=== PATIENT | male | born 1960 | race Hispanic/Latino ===

== ENCOUNTER 2018-03-21 09:50 | Emergency (ER) | payer BC ==
--- OUTSIDE RECORDS SUMMARY | 2018-03-21 09:52 | XMS REPORT ---
:1960 Author Organization eClinicalWorks Care Team Providers Name Role Phone Michael Jackson Provider Role Unavailable Allergies No Known Allergies Problems Problem Type Condition Code Onset Dates Condition Status Problem Premature ejaculation F52.4 Active Problem Tobacco use disorder F17.200 Active Problem Helicobacter pylori [H. pylori] as B96.81 Active the cause of diseases classified elsewhere Problem Cervical disc herniation M50.20 Active Problem Hyperlipidemia E78.5 Active Problem Erectile dysfunction, unspecified N52.9 Active erectile dysfunction type Problem Alcohol abuse F10.10 Active Problem Paresthesia R20.2 Active Problem Carpal tunnel syndrome G56.00 Active Problem Cervical spondylosis M47.812 Active Assessment Alcohol abuse F10.10 Active Assessment Nicotine use disorder F17.200 Active Assessment Erectile dysfunction, unspecified N52.9 Active erectile dysfunction type Assessment Hyperlipidemia E78.5 Active Assessment Elevated BP without diagnosis of R03.0 Active hypertension Problem Nicotine use disorder F17.200 Active Medications Medication Code System Code Instructions Start End Date Status Dosage Date FORMERLY NAMED [facility] 78347017093 81 MG Orally Once Active 1 tablet a day Lipitor FORMERLY NAMED [facility] 68748687431 80 MG Orally Once Active 1 tablet a day Lipitor FORMERLY NAMED [facility] 82085470642 80 MG Active 1 EACH ONCE A DAY ORALLY Viagra FORMERLY NAMED [facility] 49415082194 100 MG Orally Active 1 tablet Once a day as needed Results No Known Results Summary Purpose eClinicalWorks Submission
--- OUTSIDE RECORDS SUMMARY | 2018-03-21 09:52 | XMS REPORT ---
[...] Instructions Start End Date Status Dosage Date Viagra [facility] 20080573445 100 MG Orally October 04, Active 1 tablet Once a day 2018 as needed Lipitor ND 08928156680 80 MG Orally Once Active 1 tablet a day Aspir-81 [facility] 99387500823 81 MG Orally Once Active 1 tablet a day Results No Known Results Summary Purpose eClinicalWorks Submission
[2018-03-21] MEDS ORDERED: HYDROCODONE/APAP 5/325 MG TAB ONE (10:15)
[2018-03-21] MEDS ORDERED: LIDOCAINE 1% MPF 5 ML VIAL ONE (10:15)
--- NOTE | 2018-03-21 10:47 | ER ---
Nurse's Notes [facility] Name: James Kumar Age: 58 yrs Sex: Male : 1960 Arrival Date: 03/21/2018 Time: 09:52 Bed 14 Private MD: Diagnosis: Cutaneous abscess of neck Presentation: 03/21 09:59 Presenting complaint: Patient states: boil to back of left side of neck, started a iw couple weeks ago, went down then came back up. Transition of care: patient was not received from another setting of care. Onset of symptoms was March 07, 2018. Risk Assessment: Do you want to hurt yourself or someone else? Patient reports no desire to harm self or others. Initial Sepsis Screen: Does the patient meet any 2 criteria? No. Patient's initial sepsis screen is negative. Does the patient have a suspected source of infection? No. Patient's initial sepsis screen is negative. Care prior to arrival: None. 09:59 Method Of Arrival: Ambulatory iw 09:59 Acuity: FORTUNATO 4 iw Historical: - Allergies: 10:01 NKA; iw - Home Meds: 10:01 atorvastatin oral oral [Active]; iw - PMHx: 10:01 Hyperlipidemia; iw - PSHx: 10:01 right hand; iw - Immunization history:: Adult Immunizations not up to date. - Social history:: Smoking status: Patient uses tobacco products, smokes one-half pack cigarettes per day. - Ebola Screening: : Patient negative for fever greater than or equal to 101.5 degrees Fahrenheit, and additional compatible Ebola Virus Disease symptoms Patient denies exposure to infectious person Patient denies travel to an Ebola-affected area in the 21 days before illness onset No symptoms or risks identified at this time. Screenin:00 Abuse screen: Denies threats or abuse. Nutritional screening: No deficits noted. aa5 Tuberculosis screening: No symptoms or risk factors identified. Fall Risk None identified. Assessment: 10:00 General: Appears comfortable, Behavior is calm, cooperative. Pain: Complains of pain in aa5 left side of neck Pain does not radiate. Pain currently is 5 out of 10 on a pain scale. Quality of pain is described as tender, Pain began approximately 2 weeks ago Is continuous. Neuro: Level of Consciousness is awake, alert, obeys commands, Oriented to person, place, time, situation. Cardiovascular: Heart tones S1 S2 present Rhythm is regular. Respiratory: Airway is patent Respiratory effort is even, unlabored, Respiratory pattern is regular, symmetrical. GI: No signs and/or symptoms were reported involving the gastrointestinal system. : No signs and/or symptoms were reported regarding the genitourinary system. EENT: No signs and/or symptoms were reported regarding the EENT system. Derm: Skin is pink, warm \T\ dry. Abscess located on left side of neck is quarter sized, has no drainage, is hot to touch, is red, is raised. Musculoskeletal: Range of motion: intact in all extremities. 11:15 Reassessment: Patient is alert, oriented x 3, equal unlabored respirations, skin aa5 warm/dry/pink. Vital Signs: 10:06 BP 142 / 93; Pulse 87; Resp 16; Temp 98.2; Pulse Ox 99% on R/A; Weight 68.95 kg; Height iw 5 ft. 8 in. (172.72 cm); Pain 5/10; 10:06 Body Mass Index 23.11 (68.95 kg, 172.72 cm) iw ED Course: 09:52 Patient arrived in ED. tw3 09:57 Austin Mancia NP is PHCP. pm1 09:57 Fernandez Mckeon MD is Attending Physician. pm1 10:00 Arm band placed on. aa5 10:00 Patient has correct armband on for positive identification. Bed in low position. Call aa5 light in reach. Side rails up X2. Adult w/ patient. 10:01 Triage completed. iw 10:06 Jenifer Valdivia RN is Primary Nurse. aa5 10:40 Assist provider with I \T\ D: of an abscess on left side of neck Performed by Austin Mancia SOUND CONTROLLER Culture sent to lab. Wound packed. iodoform gauze, Dressing with 4X4s, tape Patient tolerated well. 10:46 Shar Olmos MD is Referral Physician. pm1 11:24 Patient did not have IV access during this emergency room visit. aa5 Administered Medications: 10:10 Drug: [place] 5 mg-325 mg 1 tabs Route: PO; aa5 10:46 Follow up: Response: No adverse reaction aa5 10:34 Drug: Lidocaine (1 %) 5 ml {Note: administered by SOUND CONTROLLER to abscess. .} Volume: 5 ml; aa5 Route: Infiltration; 10:56 Drug: Tetanus-Diphtheria Toxoid Adult 0.5 ml {Floor Surfacer: Bramasol. Exp: aa5 05/21/2020. Lot #: [id number]. } Route: IM; Site: left deltoid; 11:15 Follow up: Response: No adverse reaction aa5 Outcome: 10:46 Discharge ordered by MD. pm1 11:15 Discharged to home ambulatory, with significant other. aa5 11:15 Condition: stable 11:15 Discharge instructions given to patient, Instructed on discharge instructions, follow up and referral plans. medication usage, Demonstrated understanding of instructions, follow-up care, medications, Prescriptions given X 2. 11:25 Patient left the ED. aa5 Signatures: Amanda Aguilar RN LUCAS Jenifer Valdivia RN RN aa5 Austin Mancia NP SOUND CONTROLLER pm1 Edinson, Jessica tw3 Corrections: (The following items were deleted from the chart) 10:33 10:06 Arm band placed on iw aa5 11:28 11:24 Discharged to home ambulatory, with significant other, aa5 aa5 11:28 11:24 Condition: stable aa5 aa5 11:28 11:24 Discharge instructions given to patient, Instructed on discharge instructions, aa5 follow up and referral plans. medication usage, Demonstrated understanding of instructions, follow-up care, medications, Prescriptions given X 2, aa5
--- NOTE | 2018-03-21 10:47 | EDPHYS ---
Physician Documentation [facility] Name: James Kumar Age: 58 yrs Sex: Male : 1960 Arrival Date: 03/21/2018 Time: 09:52 Bed 14 Private MD: ED Physician Fernandez Mckeon HPI: 03/21 10:44 This 58 yrs old Male presents to ER via Ambulatory with complaints of Boil. pm1 10:44 The patient presents with an abscess of the posterior cervical area. Description: The pm1 affected area is approximately 2 cm(s), raised. Onset: The symptoms/episode began/occurred 2 week(s) ago. Possible cause(s): unknown. Associated signs and symptoms: Pertinent negatives: discharge, drainage, erythema, fever, headache, nausea, vomiting. Modifying factors: the symptoms are alleviated by nothing, the symptoms are aggravated by touching. Severity of symptoms: in the emergency department the symptoms are actually worse. The patient has experienced a previous episode, another part of the body. The patient has not recently seen a physician, the patient's primary care provider is Dr. Michael Jackson. Historical: - Allergies: 10:01 NKA; iw - Home Meds: 10:01 atorvastatin oral oral [Active]; iw - PMHx: 10:01 Hyperlipidemia; iw - PSHx: 10:01 right hand; iw - Immunization history:: Adult Immunizations not up to date. - Social history:: Smoking status: Patient uses tobacco products, smokes one-half pack cigarettes per day. - Ebola Screening: : Patient negative for fever greater than or equal to 101.5 degrees Fahrenheit, and additional compatible Ebola Virus Disease symptoms Patient denies exposure to infectious person Patient denies travel to an Ebola-affected area in the 21 days before illness onset No symptoms or risks identified at this time. ROS: 10:44 Constitutional: Negative for fever, chills, and weight loss, Eyes: Negative for injury, pm1 pain, redness, and discharge, ENT: Negative for injury, pain, and discharge, Neck: Negative for injury, pain, and swelling, Cardiovascular: Negative for chest pain, palpitations, and edema, Respiratory: Negative for shortness of breath, cough, wheezing, and pleuritic chest pain, Abdomen/GI: Negative for abdominal pain, nausea, vomiting, diarrhea, and constipation, Back: Negative for injury and pain, MS/Extremity: Negative for injury and deformity. 10:44 Neuro: Negative for headache, weakness, numbness, tingling, and seizure. 10:44 Skin: Positive for abscess, of the posterior cervical area. Exam: 10:44 Constitutional: This is a well developed, well nourished patient who is awake, alert, pm1 and in no acute distress. Head/Face: Normocephalic, atraumatic. Eyes: Pupils equal round and reactive to light, extra-ocular motions intact. Lids and lashes normal. Conjunctiva and sclera are non-icteric and not injected. Cornea within normal limits. Periorbital areas with no swelling, redness, or edema. ENT: Nares patent. No nasal discharge, no septal abnormalities noted. Tympanic membranes are normal and external auditory canals are clear. Oropharynx with no redness, swelling, or masses, exudates, or evidence of obstruction, uvula midline. Mucous membranes moist. Neck: Trachea midline, no thyromegaly or masses palpated, and no cervical lymphadenopathy. Supple, full range of motion without nuchal rigidity, or vertebral point tenderness. No Meningismus. Chest/axilla: Normal chest wall appearance and motion. Nontender with no deformity. No lesions are appreciated. Cardiovascular: Regular rate and rhythm with a normal S1 and S2. No gallops, murmurs, or rubs. Normal PMI, no JVD. No pulse deficits. Respiratory: Lungs have equal breath sounds bilaterally, clear to auscultation and percussion. No rales, rhonchi or wheezes noted. No increased work of breathing, no retractions or nasal flaring. Abdomen/GI: Soft, non-tender, with normal bowel sounds. No distension or tympany. No guarding or rebound. No evidence of tenderness throughout. Back: No spinal tenderness. No costovertebral tenderness. Full range of motion. 10:44 Skin: Appearance: normal except for affected area, abscess, that is small, approximately 2 cm(s), of the left posterior cervical area, with fluctuance, No drainage or surrounding cellulitis. Vital Signs: 10:06 BP 142 / 93; Pulse 87; Resp 16; Temp 98.2; Pulse Ox 99% on R/A; Weight 68.95 kg; Height iw 5 ft. 8 in. (172.72 cm); Pain 5/10; 10:06 Body Mass Index 23.11 (68.95 kg, 172.72 cm) iw Procedures: 10:44 I \T\ D: Incision and drainage was performed for an abscess of the left posterior pm1 cervical area Prepped with Betadine, Anesthetized with 2 ml's 1% Lidocaine. Incised with #11 blade. Drained small amount serosanguinous fluid. Loculations removed. Cultures obtained. Packed with iodoform gauze, Dressing: sterile 4x4 gauze, the patient tolerated the procedure well. MDM: 09:57 Patient medically screened. pm1 10:45 Data reviewed: vital signs. Data interpreted: Pulse oximetry: on room air is 99 %. pm1 Interpretation: normal. Counseling: I had a detailed discussion with the patient and/or guardian regarding: the historical points, exam findings, and any diagnostic results supporting the discharge/admit diagnosis, the need for outpatient follow up, a general surgeon, to return to the emergency department if symptoms worsen or persist or if there are any questions or concerns that arise at home. 03/21 10:45 Order name: Wound Culture pm1 03/21 10:01 Order name: Dressing - Wound; Complete Time: 10:23 pm1 03/21 10:01 Order name: Gloves, Sterile; Complete Time: 10:23 pm1 03/21 10:01 Order name: I\T\D Setup; Complete Time: 10:23 pm1 03/21 10:01 Order name: Scalpel; Complete Time: 10:23 pm1 Administered Medications: 10:10 Drug: [place] 5 mg-325 mg 1 tabs Route: PO; aa5 10:46 Follow up: Response: No adverse reaction aa5 10:34 Drug: Lidocaine (1 %) 5 ml {Note: administered by JIG AND FIXTURE BUILDER to abscess. .} Volume: 5 ml; aa5 Route: Infiltration; 10:56 Drug: Tetanus-Diphtheria Toxoid Adult 0.5 ml {Calculus Tutor: Adeze. Exp: aa5 05/21/2020. Lot #: [id number]. } Route: IM; Site: left deltoid; 11:15 Follow up: Response: No adverse reaction aa5 Disposition: 11:29 Co-signature as Attending Physician, Fernandez Mckeon MD I agree with the assessment and kdr plan of care. Disposition: 03/21/18 10:46 Discharged to Home. Impression: Cutaneous abscess of neck. - Condition is Stable. - Discharge Instructions: Skin Abscess, Incision and Drainage. - Prescriptions for Bactrim DS 800- 160 mg Oral Tablet - take 1 tablet by ORAL route every 12 hours for 10 days; 20 tablet. Tylenol- Codeine #3 300-30 mg Oral Tablet - take 2 tablets by ORAL route every 6 hours As needed; 20 tablet. - Work release form, Medication Reconciliation Form, Thank You Letter, Antibiotic Education, Prescription Opioid Use form. - Follow up: Emergency Department; When: As needed; Reason: Worsening of condition. Follow up: Shar Olmos MD; When: 2 - 3 days; Reason: Recheck today's complaints, Continuance of care, Re-evaluation by your physician. - Problem is new. - Symptoms have improved. Signatures: Dispatcher [employer] EDMS Fernandez Mckeon MD MD kdr Amanda Aguilar RN RN iw Jenifer Valdivia RN RN aa5 Austin Mancia NP JIG AND FIXTURE BUILDER pm1 Corrections: (The following items were deleted from the chart) 11:25 10:46 03/21/2018 10:46 Discharged to Home. Impression: Cutaneous abscess of neck. aa5 Condition is Stable. Forms are Medication Reconciliation Form, Thank You Letter, Antibiotic Education, Prescription Opioid Use. Follow up: Emergency Department; When: As needed; Reason: Worsening of condition. Follow up: Dr. Shar Olmos; When: 2 - 3 days; Reason: Recheck today's complaints, Continuance of care, Re-evaluation by your physician. Problem is new. Symptoms have improved. pm1
[2018-03-21] MEDS ORDERED: TETANUS & DIPHTHERIA TOX,ADULT 0.5 ML VIAL ONE (11:03)
== END 2018-03-21 11:25 | disposition home or self-care (01) ==
LOC: ER 09:50
PROC: 0H94XZZ Drainage of Neck Skin, External Approach (ICD-10-PCS; principal; 2018-03-21)
DX: L02.11 Cutaneous abscess of neck (principal)
CPT/HCPCS: 87070; 87205; 90714; 99284

== ENCOUNTER 2018-04-05 13:34 | Emergency (ER) | payer BC ==
--- OUTSIDE RECORDS SUMMARY | 2018-04-05 13:36 | XMS REPORT ---
[...] Start End Date Status Dosage Date Viagra [facility] 58233439447 100 MG Orally October 04, Active 1 tablet Once a day 2018 as needed Lipitor ND 37653625238 80 MG Orally Once Active 1 tablet a day Aspir-81 [facility] 19713003408 81 MG Orally Once Active 1 tablet a day Results No Known Results Summary Purpose eClinicalWorks Submission
--- OUTSIDE RECORDS SUMMARY | 2018-04-05 13:36 | XMS REPORT ---
[...] Instructions Start End Date Status Dosage Date [facility] 04377662275 81 MG Orally Once Active 1 tablet a day [address]itor [facility] 76280149418 80 MG Orally Once Active 1 tablet a day Lipitor [facility] 03710385383 80 MG Active 1 EACH ONCE A DAY ORALLY Viagra [facility] 06505371945 100 MG Orally Active 1 tablet Once a day as needed Results No Known Results Summary Purpose eClinicalWorks Submission
[2018-04-05] MEDS ORDERED: DIPHENHYDRAMINE 25 MG TAB/CAP ONE (14:25)
[2018-04-05] MEDS ORDERED: predniSONE 20 MG TAB ONE (14:25)
[2018-04-05] MEDS ORDERED: FAMOTIDINE 20 MG TAB ONE (14:25)
--- NOTE | 2018-04-05 16:13 | ER ---
Nurse's Notes [facility] Name: James Kumar Age: 58 yrs Sex: Male : 1960 Arrival Date: 04/05/2018 Time: 13:36 Bed 25 Private MD: Michael Jackson Diagnosis: Rash and other nonspecific skin eruption Presentation: 04/05 13:43 Presenting complaint: states: He was on bactrim for an infection and finished 2 la1 days ago and now he has this itchy rash all over, the rash started on but has been gettingg worse. Transition of care: patient was not received from another setting of care. Onset of symptoms was April 05, 2018. Risk Assessment: Do you want to hurt yourself or someone else? Patient reports no desire to harm self or others. Initial Sepsis Screen: Does the patient meet any 2 criteria? No. Patient's initial sepsis screen is negative. Does the patient have a suspected source of infection? No. Patient's initial sepsis screen is negative. Care prior to arrival: None. 13:43 Method Of Arrival: Ambulatory la1 13:43 Acuity: FORTUNATO 3 la1 Historical: - Allergies: 13:44 NKA; la1 - PMHx: 13:44 Hyperlipidemia; la1 - Immunization history:: Adult Immunizations up to date. - Social history:: Smoking status: Patient/guardian denies using tobacco. - Ebola Screening: : No symptoms or risks identified at this time. Screenin:00 Abuse screen: Denies threats or abuse. Denies injuries from another. Nutritional kr2 screening: No deficits noted. Tuberculosis screening: No symptoms or risk factors identified. Fall Risk None identified. Assessment: 14:00 General: Appears in no apparent distress. uncomfortable, well groomed, well developed, kr2 well nourished, Behavior is calm, cooperative, appropriate for age. Pain: Denies pain. Neuro: Level of Consciousness is awake, alert, obeys commands, Oriented to person, place, time, situation, Appropriate for age. Cardiovascular: Capillary refill < 3 seconds in bilateral fingers Patient's skin is warm and dry. Respiratory: Airway is patent Respiratory effort is even, unlabored, Respiratory pattern is regular, symmetrical. GI: Abdomen is flat, non-distended. EENT: Oral mucosa is moist. Derm: Skin is healthy with good turgor, Rash noted that is itchy, urticaria, on left leg and right leg and left arm and right arm. Musculoskeletal: Circulation, motion, and sensation intact. 15:00 Reassessment: Patient appears in no apparent distress at this time. Patient and/or kr2 family updated on plan of care and expected duration. Pain level reassessed. Patient is alert, oriented x 3, equal unlabored respirations, skin warm/dry/pink. Patient denies pain at this time. Patient states feeling better. 16:00 Reassessment: Patient appears in no apparent distress at this time. Patient is alert, kr2 oriented x 3, equal unlabored respirations, skin warm/dry/pink. Patient denies pain at this time. Patient states feeling better. Patient states symptoms have improved. Vital Signs: 13:44 BP 112 / 80; Pulse 105; Resp 16; Temp 97.7(TE); Pulse Ox 100% on R/A; Weight 68.95 kg; la1 Height 5 ft. 4 in. (162.56 cm); 15:15 BP 136 / 88 RA (auto/reg); Pulse 100; Resp 18; Pulse Ox 100% ; Pain 0/10; jp3 16:21 BP 124 / 78; Pulse 98; Resp 17; Pulse Ox 99% on R/A; kr2 13:44 Body Mass Index 26.09 (68.95 kg, 162.56 cm) la1 ED Course: 13:36 Patient arrived in ED. sb2 13:37 Michael Jackson DO is Private Physician. sb2 13:43 Triage completed. la1 13:44 Arm band placed on left wrist. la1 13:45 Aracelis Mcmanus NP is PHCP. rh1 13:45 Fernandez Mckeon MD is Attending Physician. rh1 13:50 Pulse ox on. NIBP on. jp3 14:00 No provider procedures requiring assistance completed. Patient did not have IV access kr2 during this emergency room visit. 15:18 Placed in gown. Bed in low position. Call light in reach. Side rails up X 1. Warm jp3 blanket given. 16:12 Michael Jackson DO is Referral Physician. rh1 Administered Medications: 14:20 Drug: predniSONE 60 mg Route: PO; kr2 15:33 Follow up: Response: No adverse reaction kr2 14:20 Drug: Pepcid 20 mg Route: PO; kr2 15:33 Follow up: Response: No adverse reaction kr2 14:20 Drug: Benadryl 50 mg Route: PO; kr2 15:33 Follow up: Response: No adverse reaction; No adverse reaction, itching decreased kr2 Outcome: 14:00 Discharged to home ambulatory, with family. kr2 14:00 Condition: good 14:00 Discharge instructions given to patient, family, Instructed on discharge instructions, follow up and referral plans. medication usage, Demonstrated understanding of instructions, follow-up care, medications, Prescriptions given X 3. 16:13 Discharge ordered by . rh1 16:22 Patient left the ED. kr2 Signatures: Hayder Riley RN RN la1 Aracelis Mcmanus NP ORCHARD SPRAYER rh1 Janiya Werner RN RN kr2 Josefina Alvarado sb2 Julio C Lebron jp3 Corrections: (The following items were deleted from the chart) 15:21 13:15 BP 136 / 88 Auto R Arm Regular; Pulse 100bpm; Resp 18bpm; Pulse Ox 100%; Pain jp3 0/10; jp3
--- NOTE | 2018-04-05 16:13 | EDPHYS ---
Physician Documentation [facility] Name: James Kumar Age: 58 yrs Sex: Male : 1960 Arrival Date: 04/05/2018 Time: 13:36 Bed 25 Private MD: Manuel [facility] ED Physician Fernandez Mckeon HPI: 04/05 13:51 This 58 yrs old Male presents to ER via Ambulatory with complaints of Rash. rh1 13:51 The patient's rash thought to be caused by an unknown cause. The rash is located on the rh1 body diffusely. The rash can be described as erythematous, patchy, raised, urticarial. Onset: The symptoms/episode began/occurred 3 day(s) ago. Associated signs and symptoms: Pertinent positives: itching, nausea, Pertinent negatives: burning sensation, difficulty breathing, fever, Pain swelling of lips, swelling of throat, swelling of tongue, vomiting, wheezing. Severity of symptoms: At their worst the symptoms were moderate in the emergency department the symptoms are unchanged. Treatment given at home: Benadryl. The patient has not experienced similar symptoms in the past. The patient has been recently seen at the [facility] Emergency Department, a couple of weeks ago. He began with an itchy red rash 3 days ago, moves to different parts of the body. He has been taking benadryl at home, and will have some improvement, but the rash then returns. He has had some nausea for the past few days. He denies any V/D, no fever, no pain, no SOB or wheezing. He was seen here 03/21/18 for left neck abscess with I\T\D and was started on bactrim, last dose 2 days ago. He has had follow up with Dr. Olmos, overall swelling/size of abscess and redness has decreased, continues to pack the wound daily.. Historical: - Allergies: 13:44 NKA; la1 - PMHx: 13:44 Hyperlipidemia; la1 - Immunization history:: Adult Immunizations up to date. - Social history:: Smoking status: Patient/guardian denies using tobacco. - Ebola Screening: : No symptoms or risks identified at this time. ROS: 13:51 Constitutional: Negative for fever, chills rh1 13:51 ENT: Negative for difficulty swallowing, difficulty handling secretions. 13:51 Cardiovascular: Negative for chest pain, edema. 13:51 Respiratory: Negative for cough, shortness of breath, wheezing. 13:51 Abdomen/GI: Positive for nausea, Negative for abdominal pain, vomiting, diarrhea. 13:51 : Negative for small amounts. 13:51 MS/extremity: Negative for pain, paresthesias. 13:51 Skin: Positive for rash. 13:51 Neuro: Negative for altered mental status, dizziness, numbness, syncope, near syncope, tingling, weakness. 13:51 All other systems are negative. Exam: 13:51 Constitutional: This is a well developed, well nourished patient who is awake, alert, rh1 and in no acute distress. Head/Face: Normocephalic, atraumatic. ENT: Nares patent. No nasal discharge, no septal abnormalities noted. Tympanic membranes are normal and external auditory canals are clear. Oropharynx with no redness, swelling, or masses, exudates, or evidence of obstruction, uvula midline. Mucous membranes moist. 13:51 Neck: Trachea midline, and no cervical lymphadenopathy. Supple, full range of motion without nuchal rigidity. No Meningismus. Chest/axilla: Normal chest wall appearance and motion. Nontender with no deformity. No lesions are appreciated. Cardiovascular: Regular rate and rhythm with a normal S1 and S2. No gallops, murmurs, or rubs. No JVD. No pulse deficits. Respiratory: Lungs have equal breath sounds bilaterally, clear to auscultation. No rales, rhonchi or wheezes noted. No increased work of breathing. Abdomen/GI: Soft, non-tender, with normal bowel sounds. No distension. No guarding or rebound. No evidence of tenderness throughout. Back: No spinal tenderness. No costovertebral tenderness. Full range of motion. MS/ Extremity: Pulses equal, no cyanosis. Neurovascular intact. Full, normal range of motion. 13:51 ENT: Mouth: Lips: normal, moist, Oral mucosa: normal, pink and intact, moist, without lesions, Gums: normal with healthy appearance. 13:51 Skin: abscess, that is small, approximately .5 cm(s), with packing in place, gauze clean/dry, no appreciable surrounding erythema, site non - tender, rash a moderate rash is noted, rash can be described as erythematous, raised, urticarial, on the right arm, left arm, right leg and left leg, scattered at upper extremities, worse at lower extremities, + blanches, non - tender; palms/soles without spared. 13:51 Neuro: Orientation: is normal, to person, place \T\ time. Mentation: is normal, lucid, able to follow commands, Motor: is normal, moves all fours, strength is 5/5 in all extremities, Sensation: is normal, no obvious gross deficits, numbness, is not appreciated, tingling, is not appreciated, Gait: is steady, at a normal pace, without difficulty. Vital Signs: 13:44 BP 112 / 80; Pulse 105; Resp 16; Temp 97.7(TE); Pulse Ox 100% on R/A; Weight 68.95 kg; la1 Height 5 ft. 4 in. (162.56 cm); 15:15 BP 136 / 88 RA (auto/reg); Pulse 100; Resp 18; Pulse Ox 100% ; Pain 0/10; jp3 16:21 BP 124 / 78; Pulse 98; Resp 17; Pulse Ox 99% on R/A; kr2 13:44 Body Mass Index 26.09 (68.95 kg, 162.56 cm) la1 MDM: 13:51 Patient medically screened. rh1 16:11 Data reviewed: vital signs, nurses notes, and as a result, I will discharge patient. rh1 Data interpreted: Pulse oximetry: on room air is 100 %. Interpretation: normal. Counseling: I had a detailed discussion with the patient and/or guardian regarding: the historical points, exam findings, and any diagnostic results supporting the discharge/admit diagnosis, the need for outpatient follow up, a family practitioner, to return to the emergency department if symptoms worsen or persist or if there are any questions or concerns that arise at home. Response to treatment: the patient's symptoms have markedly improved after treatment, itching resolved, erythema improved. Administered Medications: 14:20 Drug: predniSONE 60 mg Route: PO; kr2 15:33 Follow up: Response: No adverse reaction kr2 14:20 Drug: Pepcid 20 mg Route: PO; kr2 15:33 Follow up: Response: No adverse reaction kr2 14:20 Drug: Benadryl 50 mg Route: PO; kr2 15:33 Follow up: Response: No adverse reaction; No adverse reaction, itching decreased kr2 Disposition: 16:52 Co-signature as Attending Physician, Fernandez Mckeon MD I agree with the assessment and kdr plan of care. Disposition: 04/05/18 16:13 Discharged to Home. Impression: Rash and other nonspecific skin eruption. - Condition is Stable. - Discharge Instructions: Drug Rash, Rash. - Prescriptions for Benadryl 25 mg Oral Capsule - take 1 capsule by ORAL route every 6 hours As needed; 30 tablet. Pepcid 20 mg Oral Tablet - take 1 tablet by ORAL route every 12 hours for 5 days; 10 tablet. Prednisone 20 mg Oral Tablet - take 3 tablet by ORAL route once daily for 5 days; 15 tablet. - Medication Reconciliation Form, Thank You Letter, Antibiotic Education, Prescription Opioid Use form. - Follow up: Michael Jackson, ; When: 1 - 2 days; Reason: Recheck today's complaints, Continuance of care, Re-evaluation by your physician. Follow up: Emergency Department; When: As needed; Reason: Fever > 102 F, If symptoms return, Trouble breathing, Worsening of condition. - Problem is new. - Symptoms have improved. Signatures: Fernandez Mckeon MD MD kdr Hayder Riley RN RN la1 Aracelis Mcmanus NP SIDE SEAM TENDER rh1 Janiya Werner RN RN kr2 Corrections: (The following items were deleted from the chart) 14:15 13:51 He began with an itchy red rash 3 days ago, moves to different parts of the body. rh1 He has been taking benadryl at home, and will have some improvement, but the rash then returns. He has had some nausea for the past few days. He denies any V/D, no fever, no pain, no SOB or wheezing. He was seen here . rh1 14:18 13:51 Skin: abscess, rh1 rh1 16:11 13:51 ENT: Mouth: Lips: normal, moist, Oral mucosa: normal, pink and intact, moist, rh1 Gums: normal with healthy appearance, rh1 16:13 13:51 Skin: abscess, that is small, approximately .5 cm(s), with packing in place, rh1 gauze clean/dry, no appreciable surrounding erythema, site non - tender, rash a moderate rash is noted, rash can be described as erythematous, raised, urticarial, on the right arm, left arm, right leg and left leg, scattered at upper extremities, worse at lower extremities, + blanches, non - tender, rh1 16:22 16:13 04/05/2018 16:13 Discharged to Home. Impression: Rash and other nonspecific skin kr2 eruption. Condition is Stable. Forms are Medication Reconciliation Form, Thank You Letter, Antibiotic Education, Prescription Opioid Use. Follow up: [facility] Manuel; When: 1 - 2 days; Reason: Recheck today's complaints, Continuance of care, Re-evaluation by your physician. Follow up: Emergency Department; When: As needed; Reason: Fever > 102 F, If symptoms return, Trouble breathing, Worsening of condition. Problem is new. Symptoms have improved. rh1
== END 2018-04-05 16:22 | disposition home or self-care (01) ==
LOC: ER 13:34
DX: R21 Rash and other nonspecific skin eruption (principal)
CPT/HCPCS: 99283; J7512

== ENCOUNTER 2018-09-01 07:15 | Day surgery (SDC) | payer BC ==
--- OUTSIDE RECORDS SUMMARY | 2018-09-01 07:17 | XMS REPORT ---
[...] Start End Date Status Dosage Date Viagra [facility] 53978299204 100 MG Orally October 04, Active 1 tablet Once a day 2018 as needed Lipitor ND 14322587377 80 MG Orally Once Active 1 tablet a day Aspir-[address] [facility] 86668101070 81 MG Orally Once Active 1 tablet a day Results No Known Results Summary Purpose eClinicalWorks Submission
--- OUTSIDE RECORDS SUMMARY | 2018-09-01 07:17 | XMS REPORT ---
[...] Instructions Start End Date Status Dosage Date [facility] 94943625148 81 MG Orally Once Active 1 tablet a day Lipitor [facility] 40607635975 80 MG Orally Once Active 1 tablet a day Lipitor [facility] 47600176125 80 MG Active 1 EACH ONCE A DAY ORALLY Viagra [facility] 84016701852 100 MG Orally Active 1 tablet Once a day as needed Results No Known Results Summary Purpose eClinicalWorks Submission
--- OUTSIDE RECORDS SUMMARY | 2018-09-01 07:18 | XMS REPORT ---
:1960 Author Organization eClinicalWorks Care Team Providers Name Role Phone Dorie Jacksonh Provider Role Unavailable Allergies, Adverse Reactions, Alerts Substance Reaction Event Type N.K.D.A. Info Not Available Non Drug Allergy Problems Problem Type Condition Code Onset Dates Condition Status Problem Helicobacter pylori [H. 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 Active Problem Adult BMI 40.0-44.9 kg/sq m Z68.41 Active Problem Cervical spondylosis M47.812 Active Problem Alcohol abuse F10.10 Active Problem Hyperlipidemia E78.5 Active Problem Carpal tunnel syndrome G56.00 Active Assessment Refused influenza vaccine Z28.21 Active Assessment Screen for colon cancer Z12.11 Active Assessment Well adult on routine health check Z00.00 Active Assessment Nicotine use disorder F17.200 Active Problem Nicotine use disorder F17.200 Active Assessment Encounter for screening for other Z11.59 Active viral diseases Problem Premature ejaculation F52.4 Active Medications Medication Code System Code Instructions Start End Date Status Dosage Date [facility] 93266401487 81 MG Orally Active 1 tablet Once a day Lipitor [facility] 51336818162 80 MG Orally Active 1 tablet Once a day Viagra [facility] 00877543390 100 MG Orally August 03, Active 1 tablet Once a day 2019 as needed Results No Known Results Summary Purpose eClinicalWorks Submission
--- OUTSIDE RECORDS SUMMARY | 2018-09-01 07:18 | XMS REPORT ---
:1960 Author Organization eClinicalWorks Care Team Providers Name Role Phone Manuel Michael Provider Role Unavailable Allergies, Adverse Reactions, Alerts [...] Problem Carpal tunnel syndrome G56.00 Active Assessment Erectile dysfunction, unspecified N52.9 Active erectile dysfunction type Assessment Elevated BP without diagnosis of R03.0 Active hypertension Assessment Alcohol abuse counseling and Z71.41 Active surveillance Assessment Hyperlipidemia E78.5 Active Assessment Alcohol abuse F10.10 Active Problem Nicotine use disorder F17.200 Active Assessment Nicotine use disorder F17.200 Active Problem Premature ejaculation F52.4 Active Medications Medication Code System Code Instructions Start End Date Status Dosage Date Viagra [facility] 50057547859 100 MG Orally August 03, Active 1 tablet Once a day 2018 as needed Lipitor [facility] 58963775641 80 MG Orally Active 1 tablet Once a day - [facility] 29235974348 81 MG Orally Active 1 tablet Once a day Results No Known Results Summary Purpose eClinicalWorks Submission
[2018-09-01] MEDS ORDERED: Ringers Lactate 1,000 ML IV ONE (08:03)
[2018-09-01] MEDS ORDERED: LIDOCAINE 1% MPF 5 ML VIAL ONE (08:05)
[2018-09-01] MEDS ORDERED: PROPOFOL 200 MG/20 ML VIAL IV ONE (08:05)
[2018-09-01] MEDS ORDERED: GLYCOPYRROLATE 0.2 MG/ML SYR ONE ×2 (08:44)
--- NOTE | 2018-09-01 09:02 | ENDO RPT ---
[address], [address] COLONOSCOPY PROCEDURE REPORT EXAM DATE: 09/01/2018 PATIENT NAME: James Kumar MR #: [id number] BIRTHDATE: 1960 ATTENDING: Stoney Alegria MD STATUS: outpatient BARREL LINE OPERATOR: Tila Armstrong and Brittnee Hdez RN INDICATIONS: The patient is a 58 yr old Male here for a colonoscopy due to personal history of colon polyps PROCEDURE PERFORMED: Colonoscopy with biopsy - cold polypectomy MEDICATIONS: Per Anesthesia. ESTIMATED BLOOD LOSS: None CONSENT: The patient understands the risks and benefits of the procedure and understands that these risks include, but are not limited to: sedation, allergic reaction, infection, perforation and/or bleeding. Alternative means of evaluation and treatment include, among others: physical exam, x-rays, and/or surgical intervention. The patient elects to proceed with this endoscopic procedure. DESCRIPTION OF PROCEDURE: During intra-op preparation period all mechanical medical equipment was checked for proper function. Hand hygiene and appropriate measures for infection prevention was taken. Procedure, possible complications, alternatives including, but not limited to possibility of bleeding, perforation, tear, infection, sepsis, need for surgery, need for blood transfusion, were explained to the patient. After the risks, benefits and alternatives of the procedure were thoroughly explained, Informed consent was verified, confirmed and timeout was successfully executed by the treatment team. The patient was placed in the left lateral position. A digital rectal exam was performed and revealed external hemorrhoids. After appropriate level of anesthesia, the scope was passed. The [id number] ([id number]) endoscope was introduced through the anus and advanced to the cecum, which was identified by transillumination from the light source, the appendix, and the ileocecal valve. The quality of the prep was good. The instrument was then slowly withdrawn as the colon was fully examined. Scope withdrawal time was . COLON FINDINGS: Moderate sized internal and external hemorrhoids were found. Mild diverticulosis was noted in the sigmoid colon. No bleeding was noted from the diverticulosis. A sessile polyp was found less than 0.3 cm in size and approx.20 cm from anal verge. Retroflexed views revealed no abnormalities. The scope was then completely withdrawn from the patient and the procedure terminated. ADVERSE EVENTS: There were no complications. IMPRESSIONS: 1. Moderate sized internal and external hemorrhoids 2. Mild diverticulosis was noted in the sigmoid colon 3. Sessile polyp was found RECOMMENDATIONS: 1. follow-up: office 1 week(s) 2. await biopsy results 3. no seeds in diet 4. hemorrhoidal hygiene RECALL: for Colonoscopy, pending biopsy results. Stoney Alegria MD eSigned: Stoney Alegria MD 09/01/2018 9:02 AM cc: Michael Jackson MD CPT CODES: ICD9 CODES: PATIENT NAME: James Kumar MR#: [id number]
== END 2018-09-01 09:34 | disposition home or self-care (01) ==
LOC: OR 07:15
PROVIDERS: ATTEND Surgery
PROC: 0DBE8ZX Excision of Large Intestine, Via Natural or Artificial Opening Endoscopic, Diagnostic (ICD-10-PCS; principal; 2018-09-01 08:30)
DX: K63.5 Polyp of colon (principal); K57.30 Diverticulosis of large intestine without perforation or abscess without bleeding; K64.8 Other hemorrhoids; K64.4 Residual hemorrhoidal skin tags; E78.00 Pure hypercholesterolemia, unspecified; F17.210 Nicotine dependence, cigarettes, uncomplicated; Z86.010 Personal history of colon polyps; Z88.3 Allergy status to other anti-infective agents; Z83.3 Family history of diabetes mellitus; Z82.49 Family history of ischemic heart disease and other diseases of the circulatory system; Z80.6 Family history of leukemia
CPT/HCPCS: 88305; J2704

== ENCOUNTER 2024-10-26 22:26 | Emergency (ER) | payer OTHER ==
--- OUTSIDE RECORDS SUMMARY | 2024-10-26 22:29 | XMS REPORT | Clinical Summary ---
Author Name Unknown Organization [facility] [place] Address [address] [place] [address] Care Team Providers Care Casino Change Attendant Name Role Phone Rivera Walter MD Primary Care Provider Allergies No known active allergies Medications * This document contains information received from the source organization and may not represent a complete record from that organization. Lipitor 80 mg tablet Take 1 tablet (80 mg) by mouth at bedtime. Active sildenafil (Viagra) 100 MG tablet Take 25 mg by mouth daily as needed. Active fenofibrate 54 mg tablet Take 1 tablet (54 mg) by mouth daily. 11/03/2023 Active Active Problems Problem Noted Date Diagnosed Date Iron overload 04/11/2023 Monoclonal gammopathy of undetermined significan ce (MGUS) 04/11/2023 Overview (04/11/2023): IgM kappa with faint IgG lambda light chains. Encounters Date Type Department Care Team Description 02/25/2024 1:15 PM CDT [facility] [address] [facility] [address] [place] [address] Rivera Walter MD Monoclonal gammopathy of undetermined significance (MGUS) (Primary Dx); Screening for lung cancer 02/25/2024 Travel 02/23/2024 10:46 AM CDT - 02/23/2024 11:59 PM CDT [facility] [address] [place] [id number] Rivera Walter MD Monoclonal gammopathy of undetermined significance (MGUS) Discharge Disposition: Home 02/22/2024 10:00 AM CDT - 02/22/2024 11:59 PM CDT [facility] [address] [place] [id number] Rivera Walter MD Monoclonal gammopathy of undetermined significance (MGUS) Discharge Disposition: Home 02/21/2024 Orders Only [facility] [address] [place] [address], 6[address] [place] [address] Zohreh Crowley, RAG SHREDDER,MATERIAL CONTROL SPECIALIST Monoclonal gammopathy of undetermined significance (MGUS) (Primary Dx) after 10/27/2023 Surgical History Surgery Date Site/Laterality Comments FINGER SURGERY CATARACT EXTRACTION, BILATERAL BONE MARROW BIOPSY 06/03/2020 - 06/02/2021 Medical History Medical History Date Comments Hyperlipidemia Renal stone Cancer Social History Tobacco Use Types Packs/Day Years Used Date Smoking Tobacco: Every Day Cigarettes Smokeless Tobacco: Never Tobacco Cessation:Ready to Q uit: Not Asked; Counseling Given: Not Answered Alcohol Use Standard Drinks/Week Comments Yes 5 (1 standard drink = 0.6 oz pur e alcohol) daily Sex and Gender Information Value Date Recorded Sex Assigned at Not on file 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 Gender Identity Not on file Sexual Orientation Not on file Obstetrics History Last Filed Vital Signs Vital Sign Reading Time Taken Comments Blood Pressure 122/75 02/25/2024 12:55 PM CDT Pulse 82 02/25/2024 12:55 PM CDT Temperature 37.1 °C (98.8 °F) 02/25/2024 12:55 PM C DT Respiratory Rate 15 02/25/2024 12:55 PM CDT Oxygen Saturation 98% 02/25/2024 12:55 PM CDT Inhaled Oxygen Concentration - - Weight 69.6 kg (153 lb 7 oz) 02/25/2024 12:55 PM CDT Height - - Body Mass Index 26.04 04/09/2023 11:08 AM MOTOR TESTER Plan of Treatment Health Maintenance Due Date Last Done Comments COVID-19 Vaccine (#1) 1965 Pneumococcal Vaccine: 50+ Years (1 of 2 - PCV) 977 Influenza Vaccine (Season Ended) 2025 Procedures Procedure Name Priority Date/Time Associated Diagnosis Comments URINE TOTAL PROTEIN 24 HOUR Routine 02/23/2024 10:48 AM CDT Monoclonal gammopathy of undetermined significance (MGUS) IMMUNOFIXATION ELECTROPHORESIS URINE Routine 02/23/2024 10:48 AM CDT Monoclonal gammopathy of undetermined significance (MGUS) PROTEIN ELECTROPHORESIS URINE Routine 02/23/2024 10:48 AM CDT Monoclonal gammopathy of undetermined significance (MGUS) PROTEIN ELECTROPHORESIS URINE WITH OLENA Routine 02/23/2024 10:48 AM CDT Monoclonal gammopathy of undetermined significance (MGUS) FREE KAPPA/FREE LAMBDA RATIO Routine 02/22/2024 10:14 AM CDT Monoclonal gammopathy of undetermined significance (MGUS) IMMUNOFIXATION ELECTROPHORESIS Routine 02/22/2024 10:14 AM CDT Monoclonal gammopathy of undetermined significance (MGUS) PROTEIN ELECTROPHORESIS Routine 02/22/20 24 10:14 AM CDT Monoclonal gammopathy of undetermined significance (MGUS) .CBC Routine 02/22/2024 10:14 AM CDT Monoclonal gammopathy of undetermined significance (MGUS) LACTATE DEHYDROGENASE Routine 02/22/2024 10:14 AM CDT Monoclonal gammopathy of undetermined significance (MGUS) BETA 2 MICROGLOBULIN Routine 02/22/2024 10:14 AM CDT Monoclonal gammopathy of undetermined significance (MGUS) SERUM PROTEIN ELECTROPHORESIS WITH OLENA Routine 02/22/2024 10:14 AM CDT Monoclonal gammopathy of undetermined significance (MGUS) FREE LAMBDA LIGHT CHAIN Routine 02/22/20 10:14 AM CDT Monoclonal gammopathy of undetermined significance (MGUS) FREE KAPPA LIGHT CHAIN Routine 10:14 AM CDT Monoclonal gammopathy of undetermined significance (MGUS) IMMUNOGLOBULIN M Routine 02/22/2024 10:1 4 AM CDT Monoclonal gammopathy of undetermined significance (MGUS) IMMUNOGLOBULIN G Routine 02/22/2024 10:1 4 AM CDT Monoclonal gammopathy of undetermined significance (MGUS) IMMUNOGLOBULIN A Routine 02/22/2024 10:1 4 AM CDT Monoclonal gammopathy of undetermined significance (MGUS) FRACTIONATED BILIRUBIN Routine 10:14 AM CDT Monoclonal gammopathy of undetermined significance (MGUS) URIC ACID Routine 02/22/2024 10:14 AM CDT Monoclonal gammopathy of undetermined significance (MGUS) PHOSPHORUS LEVEL Routine 02/22/2024 10:1 4 AM CDT Monoclonal gammopathy of undetermined significance (MGUS) MAGNESIUM LEVEL Routine 02/22/2024 10:14 AM CDT Monoclonal gammopathy of undetermined significance (MGUS) COMPREHENSIVE METABOLIC PANEL Routine 02/22/2024 10:14 AM CDT Monoclonal gammopathy of undetermined significance (MGUS) COMPLETE BLOOD COUNT W/ DIFFERENTIAL Routine 02/22/2024 10:14 AM CDT Monoclonal gammopathy of undetermined significance (MGUS) after 10/27/2023 Results * OLENA Urine (02/23/2024 10:48 AM CDT) Pathologist [facility] Urine Immunofixation See Comment 02/25/2024 3:09 PM CDT [facility] UIFE Path Interp The urine protein immunofixation electrophoretic patterns obtained with the use of antisera against IgG, IgA, IgM, bound kappa and bound lambda light chains, free kappa and free lambda light chain proteins are positive for a kappa Bence-Mcmanus proteinuria. 02/25/2024 3:09 PM CDT [facility] Pathologist Signature . 02/25/2024 3:09 PM CDT [facility] Urine 24 Hr Voided urine specimen / Unknown Non-blood Collection / Unknown 02/23/2024 10:48 AM CDT 02/23/2024 2:19 PM CDT Zohreh Crowley APRN,MATERIAL CONTROL SPECIALIST URINE ORDERABLES Final R esult [facility] Unless otherwise noted, all lab tests performed by: Division of Pathology and Laboratory Medicine [address] [place] [address] [phone] * (ABNORMAL) Protein Electrophoresis Urine (02/23/2024 10:48 AM CDT) Urine Albumin % 37.5 % 02/25/2024 3:09 PM CDT [facility] U Globulin % 62.5 % 02/25/2024 3:09 PM CDT [facility] Urine Bence Mcmanus Protein 5.7(H) 0.0 - 0.0 % 02/25/2024 3:09 PM CDT [facility] U BJP/TV <5(H) 0 - 0 02/25/2024 3:09 PM CDT [facility] U ProE Path Interp There is a faint paraprotein band in the gamma region. This is found by uIFE to be monoclonal free kappa. 02/25/2024 3:09 PM CDT [facility] Pathologist Signature . 02/25/2024 3:09 PM CDT [facility] Urine 24 Hr Voided urine specimen / Unknown Non-blood Collection / Unknown 02/23/2024 10:48 AM CDT 02/23/2024 2:19 PM CDT us Zohreh Carline RAG SHREDDER,MATERIAL CONTROL SPECIALIST URINE ORDERABLES Final R esult [facility] Unless otherwise noted, all lab tests performed by: Division of Pathology and Laboratory Medicine [address] [place] [phone] * 24hr Urine Total Protein (02/23/2024 10:48 AM CDT) Urine Total Protein <4 mg/dL 02/23/2024 3:15 PM CDT [facility] Comment:Caution is advised w hen interpreting values greater than 555 mg/dL. Results requiring extended dilution beyond the senior applications developer's recommended limit may not dilute linearly due to potential matrix effect. Correlation with clinical context is recommended. Urine Total Pro per Total volume 02/23/2024 3:15 PM CDT [facility] Comment:Unable to perform 24 hr calculation due to one or more parameters outside of reportable ranges. Total Volume 2,000 mL/24hr 02/23/2024 3:15 PM CDT [facility] Hours Collected 24 hr 3:15 PM CDT [facility] Start Date 02/22/2024 02/23/2024 3:15 PM CDT [facility] Start Time 10:30 AM 02/23/2024 3:15 PM CDT [facility] End Date 02/23/2024 02/23/2024 3:15 PM CDT [facility] End Time 10:30 AM 02/23/2024 3:15 PM CDT [facility] How many jugs collected? 1 02/23/2024 3:15 PM CDT [facility] Urine 24 Hr Voided urine specimen / Unknown Non-blood Collection / Unknown 02/23/2024 10:48 AM CDT 02/23/2024 2:19 PM CDT us Zohreh Carline RAG SHREDDER,MATERIAL CONTROL SPECIALIST URINE ORDERABLES Final R esult [facility] Unless otherwise noted, all lab tests performed by: Division of Pathology and Laboratory Medicine [address] [place] [phone] * OLENA (02/22/2024 10:14 AM CDT) Pathologist [facility] Serum Immunofixation See Comment 02/24/2024 10:23 AM CDT [facility] OLENA Path Interp The serum protein immunofixation electrophoretic patterns obtained with the use of antisera against IgG, IgA, IgM, bound kappa and bound lambda light chains are positive for an IgM kappa monoclonal gammopathy and are also suggestive of an associated oligoclonal gammopathy. Correlation with the clinical findings is suggested. 02/24/2024 10:23 AM CDT [facility] Pathologist Signature . 02/24/2024 10:23 AM CDT [facility] Blood Peripheral blood specimen / Unknown Venipuncture / Unknown 02/22/2024 10:14 AM CDT 02/22/2024 10:30 AM CDT Zohreh Crowley APRN,MATERIAL CONTROL SPECIALIST LAB BLOOD ORDERABLES Fin al Result [facility] Unless otherwise noted, all lab tests performed by: Division of Pathology and Laboratory Medicine [address] [place] [phone] * (ABNORMAL) Serum Protein Electrophoresis (02/22/2024 10:14 AM CDT) Pathologist [facility] Albumin 4.5 3.6 - 5.4 gm/dL 02/24/2024 10:24 AM CDT [facility] Alpha 1 Globulin 0.3 0.2 - 0.4 gm/dL 02/24/2024 10:24 AM CDT [facility] Alpha 2 Globulin 0.9 0.5 - 1.0 gm/dL 02/24/2024 10:24 AM CDT [facility] Beta Globulin 1.3(H) 0.5 - 1.1 gm/dL 02/24/2024 10:24 AM CDT [facility] Gamma Globulin 1.3 0.7 - 1.6 gm/dL 02/24/2024 10:24 AM CDT [facility] SPE Path Interp The serum electrophoretic pattern does not show definitive evidence of an M-protein peak. If a paraproteinemia is suspected clinically, however, serum OLENA studies are suggested. 02/24/2024 10:24 AM CDT [facility] Pathologist Signature . 02/24/2024 10:24 AM CDT [facility] SPEP Total Protein 8.3 6.4 - 8.3 gm/dL 02/24/2024 10:24 AM CDT [facility] Blood Peripheral blood specimen / Unknown Venipuncture / Unknown 02/22/2024 10:14 AM CDT 02/22/2024 10:30 AM CDT VINNY Snowden APRN LAB BLOOD ORDERABLES Fin al Result [facility] Unless otherwise noted, all lab tests performed by: Division of Pathology and Laboratory Medicine [address] [place] [address] * (ABNORMAL) .CBC (02/22/2024 10:14 AM CDT) White Blood Cell 7.2 4.1 - 10.5 K/uL 02/22/2024 10:41 AM CDT [facility] Red Blood Cell 4.55 4.30 - 6.04 M/uL 02/22/2024 10:41 AM CDT [facility] Hemoglobin 15.4 13.3 - 17.4 g/dL 02/22/2024 10:41 AM CDT [facility] Hematocrit 45.2 39.5 - 51.8 % 02/22/2024 10:41 AM CDT [facility] Mean Cell Volume 99 82 - 99 fL 02/22/2024 10:41 AM CDT [facility] Mean Cell Hemoglobin 33.8(H) 26.6 - 33.2 pg 02/22/2024 10:41 AM [facility] Mean Cell Hemoglobin Concentration 34.1 31.1 - 35.2 g/dL 02/22/2024 10:41 AM T [facility] RDW-SD 44.6 37.5 - 49.7 fL 02/22/2024 10:41 AM [facility] Red Cell Diameter Width 12.1 11.6 - 15.5 % 02/22/2024 10:41 AM T [facility] Platelet 345 160 - 397 K/uL 02/22/2024 10:41 AM [facility] Mean Platelet Volume 8.5(L) 9.1 - 12.6 fL 02/22/2024 10:41 AM [facility] INRBC 0.0 0.0 - 0.1 /100 WBC 02/22/2024 10:41 AM [facility] Comment: The INRBC (instrument NRBC) value reflects the enumeration of nucleated red blood cells contained in a 200uL sample of whole blood analyzed by the instrument. This value may differ from the NRBC value reported in a manual differential, which is based on a 100 cell differential. Neutrophil % 56.5 43.2 - 72.7 % 02/22/2024 10:41 AM [facility] Lymphocyte % 28.1 16.8 - 46.2 % 02/22/2024 10:41 AM [facility] Monocyte % 10.5 5.1 - 12.5 % 02/22/2024 10:41 AM [facility] Eosinophil % 3.4 0.4 - 6.3 % 02/22/2024 10:41 AM [facility] Basophil % 1.1 0.2 - 1.4 % 02/22/2024 10:41 AM [facility] IGRE % 0.4 0.1 - 1.5 % 02/22/2024 10:41 AM [facility] Comment:The IGRE% includes M etamyelocytes, Myelocytes and Promyelocytes. Neutrophil Abs 4.05 1.95 - 7.25 K/uL 02/22/2024 10:41 AM T [facility] Lymphocyte Abs 2.01 1.01 - 3.24 K/uL 02/22/2024 10:41 AM CDT [facility] Monocyte Abs 0.75 0.24 - 0.85 K/uL 02/22/2024 10:41 AM CDT [facility] Eosinophil Abs 0.24 0.02 - 0.50 K/uL 02/22/2024 10:41 AM CDT [facility] Basophil Abs 0.08 0.02 - 0.09 K/uL 02/22/2024 10:41 AM CDT [facility] IG Abs 0.03 0.01 - 0.12 K/uL 02/22/2024 10:41 AM CDT [facility] Blood Peripheral blood specimen / Unknown Venipuncture / Unknown 02/22/2024 10:14 AM CDT 02/22/2024 10:30 AM CDT Zohrehcastillo Guallpas RAG SHREDDER,MATERIAL CONTROL SPECIALIST LAB BLOOD ORDERABLES Fin al Result Performing Organization Address City/[facility] Co de Phone Number [facility] Unless otherwise noted, all lab tests performed by: Division of Pathology and Laboratory Medicine [address] [place] [phone] * (ABNORMAL) Free Mckenney/Free Lambda Ratio (02/22/2024 10:14 AM CDT) [facility] Free Mckenney/ Free Lambda Ratio 3.73(H) 0.26 - 1.65 02/23/2024 11:59 AM CDT [facility] Blood Peripheral blood specimen / Unknown Venipuncture / Unknown 02/22/2024 10:14 AM CDT 02/22/2024 10:30 AM CDT Zohreh Carline RAG SHREDDER,MATERIAL CONTROL SPECIALIST LAB BLOOD ORDERABLES Fin al Result [facility] Unless otherwise noted, all lab tests performed by: Division of Pathology and Laboratory Medicine [address] [place] [phone] * Fractionated Bilirubin (02/22/2024 10:14 AM CDT) [facility] Bilirubin Direct <0.2 0.0 - 0.3 mg/dL 02/22/2024 11:06 AM CDT [facility] Comment:Indocyanine Green (I CG) may cause falsely elevated bilirubin results. Total and direct bilirubin must not be measured from samples containing indocyanine green. Bilirubin Indirect 2023 11:06 AM CDT [facility] Comment:Unable to calculate Indirect Bilirubin result due to some parameters are outside reportable range Bilirubin Total 0.6 0.0 - 1.2 mg/dL 02/22/2024 11:06 AM CDT [facility] Comment: Indocyanine Green (ICG) may cause falsely elevated bilirubin results. Total and direct bilirubin must not be measured from samples containing indocyanine green. False elevation of total bilirubin can be seen in patients with IgG concentrations above 28 g/L. Indocyanine Green (ICG) may cause falsely elevated bilirubin results. Total and direct bilirubin must not be measured from samples containing indocyanine green. False elevation of total bilirubin can be seen in patients with IgG concentrations above 28 g/L. Blood Peripheral blood specimen / Unknown Venipuncture / Unknown 02/22/2024 10:14 AM CDT 02/22/2024 10:30 AM CDT VINNY Snowden APRN LAB BLOOD ORDERABLES Fin al Result [facility] Unless otherwise noted, all lab tests performed by: Division of Pathology and Laboratory Medicine [address] [place] [address] [phone] * (ABNORMAL) Comprehensive Metabolic Panel (02/22/2024 10:14 AM CDT) Bilirubin Total 0.6 0.0 - 1.2 mg/dL 02/22/2024 11:06 AM CDT [facility] Comment:Indocyanine Green (I CG) may cause falsely elevated bilirubin results. Total and direct bilirubin must not be measured from samples containing indocyanine green. False elevation of total bilirubin can be seen in patients with IgG concentrations above 28 g/L. eGFR 96 >=60 mL/min/1. 73 sq. m 02/22/2024 11:06 AM CDT [facility] Comment: The eGFRcr is calculated with the 2020 CKD-EPI creatinine equation using creatinine, patient's age, and sex for adults 18 years of age and older. Other factors, especially muscle mass, may affect accuracy and need to be considered. According to the Kidney Disease: Improving Global Outcomes (KDIGO) CKD Work Group 2012 Clinical Practice Guideline, chronic kidney disease (CKD) is defined as the abnormalities of kidney structure or function, present for more than 3 months, with implications for health. CKD should be classified by cause, GFR category, and albuminuria category. KDIGO guidelines provide the following GFR categories. Stage / Description / GFR mL/min/1.73 m2: G1* / Normal or high / >= 90 G2* / Mildly decreased / 60-89 G3a / Mildly to moderately decreased / 45-59 G3b / Moderately to severely decreased / 30-44 G4 / Severely decreased / 15-29 G5 / Kidney failure / <15 *In the absence of evidence of kidney damage, neither G1 nor G2 fulfill criteria for CKD. Tot Protein 8.3 6.4 - 8.3 gm/dL 02/22/2024 11:06 AM T [facility] Calcium Level Total 10.0 8.2 - 10.2 mg/dL 02/22/2024 11:06 AM T [facility] Alkaline Phosphatase 78 40 - 129 U/L 02/22/2024 11:06 AM T [facility] Albumin Level 4.8 3.5 - 5.2 gm/dL 02/22/2024 11:06 AM T [facility] AST 23 <=40 U/L 02/22/2024 11:06 AM T [facility] ALT 13 <=41 U/L 02/22/2024 11:06 AM T [facility] Sodium Level 138 136 - 145 mmol/L 02/22/2024 11:06 AM T [facility] Potassium Level 4.6(H) 3.4 - 4.5 mmol/L 02/22/2024 11:06 AM T [facility] Chloride 101 98 - 107 mmol/L 02/22/2024 11:06 AM T [facility] CO2 26 22 - 29 mmol/L 02/22/2024 11:06 AM T [facility] Anion Gap 11 4 - 14 mmol/L 02/22/2024 11:06 AM CDT [facility] Creatinine 0.84 0.67 - 1.17 mg/dL 02/22/2024 11:06 AM CDT [facility] BUN 8 6 - 23 mg/dL 02/22/2024 11:06 AM CDT [facility] Glucose Level 87 70 - 99 mg/dL 02/22/2024 11:06 AM CDT [facility] Comment: Effective 12/28/15, the glucose reference intervals have been updated based on [place] [employer] guidelines (Standards of Medical Care in Diabetes 2016. Diabetes Care 2016; 39: S13-S22). Fasting blood glucose: Normal: 70-99 mg/dL Impaired fasting glucose (increased risk for diabetes or pre-diabetes): 100-125 mg/dL Diabetes mellitus: >/=126 mg/dL Random blood glucose: Normal: 70-199 mg/dL Note: Random glucose >100 mg/dL is associated with increased risk for diabetes. Blood Peripheral blood specimen / Unknown Venipuncture / Unknown 02/22/2024 10:14 AM CDT 02/22/2024 10:30 AM CDT VINNY Snowden APRN LAB BLOOD ORDERABLES Fin al Result Performing Organization Address City/[facility]/ZIP Co de Phone Number [facility] Unless otherwise noted, all lab tests performed by: Division of Pathology and Laboratory Medicine [address] [place] [phone] * Free Lambda Light Chain (02/22/2024 10:14 AM CDT) Free Lambda Light chain 11.36 5.71 - 26.30 mg/L 02/23/2024 11:59 AM CDT [facility] Blood Peripheral blood specimen / Unknown Venipuncture / Unknown 02/22/2024 10:14 AM CDT 02/22/2024 10:30 AM CDT Zohreh Crowley APRN,MATERIAL CONTROL SPECIALIST LAB BLOOD ORDERABLES Fin al Result [facility] Unless otherwise noted, all lab tests performed by: Division of Pathology and Laboratory Medicine [address] [place] [phone] * (ABNORMAL) Free Mckenney Light Chain (02/22/2024 10:14 AM CDT) Free Mckenney Light 42.33(H) 3.30 - 19.40 mg/L 02/23/2024 11:59 AM CDT [facility] Blood Peripheral blood specimen / Unknown Venipuncture / Unknown 02/22/2024 10:14 AM CDT 02/22/2024 10:30 AM CDT VINNY Snowden APRN LAB BLOOD ORDERABLES Fin al Result Performing Organization Address City/[facility] de Phone Number [facility] Unless otherwise noted, all lab tests performed by: Division of Pathology and Laboratory Medicine [address] [place] [address] [phone] * Uric Acid (02/22/2024 10:14 AM CDT) Pathologist [facility] Uric Acid 4.7 3.4 - 7.0 mg/dL 02/22/2024 11:06 AM CDT [facility] Blood Peripheral blood specimen / Unknown Venipuncture / Unknown 02/22/2024 10:14 AM CDT 02/22/2024 10:30 AM CDT VINNY Snowden APRN LAB BLOOD ORDERABLES Fin al Result [facility] Unless otherwise noted, all lab tests performed by: Division of Pathology and Laboratory Medicine [address] [place] [address] [phone] * Phosphorus Level (02/22/2024 10:14 AM CDT) Phosphorus Level 2.9 2.5 - 4.5 mg/dL 02/22/2024 11:06 AM CDT [facility] Blood Peripheral blood specimen / Unknown Venipuncture / Unknown 02/22/2024 10:14 AM CDT 02/22/2024 10:30 AM CDT us Zohreh Carline RAG SHREDDER,MATERIAL CONTROL SPECIALIST LAB BLOOD ORDERABLES Fin al Result Performing Organization Address City/State/[facility] Co de Phone Number [facility] Unless otherwise noted, all lab tests performed by: Division of Pathology and Laboratory Medicine [address] [place] [address] [phone] * Magnesium Level (02/22/2024 10:14 AM CDT) Pathologist [facility] Magnesium Level 2.1 1.6 - 2.6 mg/dL 02/22/2024 11:06 AM CDT [facility] Blood Peripheral blood specimen / Unknown Venipuncture / Unknown 02/22/2024 10:14 AM CDT 02/22/2024 10:30 AM CDT us Zohreh Carline RAG SHREDDER,MATERIAL CONTROL SPECIALIST LAB BLOOD ORDERABLES Fin al Result Performing Organization Address [facility] de Phone Number [facility] Unless otherwise noted, all lab tests performed by: Division of Pathology and Laboratory Medicine [address] [place] [address] [phone] * LDH (02/22/2024 10:14 AM CDT) [facility] LDH 150 135 - 225 U/L 02/22/2024 11:06 AM CDT [facility] Blood Peripheral blood specimen / Unknown Venipuncture / Unknown 02/22/2024 10:14 AM CDT 02/22/2024 10:30 AM CDT Narrative [facility] - 02/22/2024 11:06 AM CDT Results greater than 1651 U/L may not be reliable due to matrix effect with extended dilution as it exceeds the senior applications developer's recommended limit. Caution should be exercised when interpreting such values and done in conjunction with clinical context. us Zohreh Carline RAG SHREDDER,MATERIAL CONTROL SPECIALIST LAB BLOOD ORDERABLES Fin al Result Performing Organization Address City/[facility] Co de Phone Number [facility] Unless otherwise noted, all lab tests performed by: Division of Pathology and Laboratory Medicine [address] [place] [address] [phone] * IgA (02/22/2024 10:14 AM CDT) Pathologist [facility] IgA 128 85 - 499 mg/dL 02/23/2024 11:59 AM CDT [facility] Blood Peripheral blood specimen / Unknown Venipuncture / Unknown 02/22/2024 10:14 AM CDT 02/22/2024 10:30 AM CDT Zohreh Carline RAG SHREDDER,MATERIAL CONTROL SPECIALIST LAB BLOOD ORDERABLES Fin al Result [facility] Unless otherwise noted, all lab tests performed by: Division of Pathology and Laboratory Medicine [address] [place] [phone] * (ABNORMAL) IgM (02/22/2024 10:14 AM CDT) Pathologist [facility] IgM 543(H) 35 - 242 mg/dL 02/23/2024 11:59 AM CDT [facility] Blood Peripheral blood specimen / Unknown Venipuncture / Unknown 02/22/2024 10:14 AM CDT 02/22/2024 10:30 AM CDT Zohreh Carline RAG SHREDDER,MATERIAL CONTROL SPECIALIST LAB BLOOD ORDERABLES Fin al Result [facility] Unless otherwise noted, all lab tests performed by: Division of Pathology and Laboratory Medicine [address] [place] [id number] * IgG (02/22/2024 10:14 AM CDT) Pathologist [facility] IgG 1,197 610 - 1,616 mg/dL 02/23/2024 11:59 AM CDT [facility] Blood Peripheral blood specimen / Unknown Venipuncture / Unknown 02/22/2024 10:14 AM CDT 02/22/2024 10:30 AM CDT us Zohreh Carline RAG SHREDDER,MATERIAL CONTROL SPECIALIST LAB BLOOD ORDERABLES Fin al Result Performing Organization Address City/[facility] Co de Phone Number [facility] Unless otherwise noted, all lab tests performed by: Division of Pathology and Laboratory Medicine [address] [place] [id number] * Beta 2 Microglobulin (02/22/2024 10:14 AM CDT) Beta 2 Microglobulin 1.70 0.80 - 2.30 mg/L 02/23/2024 11:59 AM CDT [facility] Blood Peripheral blood specimen / Unknown Venipuncture / Unknown 02/22/2024 10:14 AM CDT 02/22/2024 10:30 AM CDT Narrative [facility] - 02/23/2024 11:59 AM CDT This test is measured by turbidimetric methodology on The [employer] Optilite analyzer. Results obtained in different methods are not interchangeable. VINNY Snowden APRN LAB BLOOD ORDERABLES Fin al Result Performing Organization Address [facility] Co de Phone Number [facility] Unless otherwise noted, all lab tests performed by: Division of Pathology and Laboratory Medicine [address] [place] [phone] after 10/27/2023 Insurance MEDICARE PART A Member Subscriber Plan / Payer (Ef fective 2023-Present) Name:James Kumar Member ID:[id number] Relation to Subscriber:Self Name:James Kumar Subscriber ID:[id number] Payer ID:[id number] Group ID:Not on file Type:Medicare Address: [employer] [address] [place] [id number] MEDICARE PART A Member Subscriber Plan / Payer (Ef fective 2023-Present) Name:James Kumar Member ID:[id number] Relation to Subscriber:Self Name:James Kumar Subscriber ID:[id number] Payer ID:[id number] Group ID:Not on file Type:Medicare Address: [employer] [address] [place] [address] Care Teams Casino Change Attendant Relationship Specialty Start Date End Date Rivera Walter MD [address] [place] [address] [email or web address] PCP - General Lymphoma and Myeloma 02/19/23
[2024-10-26] MEDS ORDERED: HYDROCODONE/APAP 5/325 MG TAB ONE (23:54)
--- NOTE | 2024-10-27 01:27 | ER ---
Nurse's Notes [facility] Name: James Kumar Age: 64 yrs Sex: Male : 1960 Arrival Date: 10/26/2024 Time: : Bed 11 Private MD: Diagnosis: Pain in left lower leg Presentation: 10/26 22:56 Chief complaint: Patient states: had lt leg cramps 2 weeks ago and today began having dd2 cramping behind knee and difficulty walking. Coronavirus screen: At this time, the client does not indicate any symptoms associated with coronavirus-19. Ebola Screen: No symptoms or risks identified at this time. Initial Sepsis Screen: Does the patient meet any 2 criteria? No. Patient's initial sepsis screen is negative. Does the patient have a suspected source of infection? No. Patient's initial sepsis screen is negative. Risk Assessment: Do you want to hurt yourself or someone else? Patient reports no desire to harm self or others. Onset of symptoms is unknown. 22:56 Method Of Arrival: Ambulatory dd2 22:56 Acuity: FORTUNATO 3 dd2 Triage Assessment: 23:00 General: Appears in no apparent distress. uncomfortable, Behavior is calm, cooperative, dd2 appropriate for age. Pain: Complains of pain in left hamstring, posterior aspect of left knee and left calf. EENT: No deficits noted. No signs and/or symptoms were reported regarding the EENT system. Neuro: No deficits noted. Cardiovascular: No deficits noted. Respiratory: No deficits noted. GI: No deficits noted. : No deficits noted. No signs and/or symptoms were reported regarding the genitourinary system. Derm: No deficits noted. No signs and/or symptoms reported regarding the dermatologic system. Musculoskeletal: Circulation, motion, and sensation intact. Range of motion: intact in all extremities, Tenderness present in left hamstring and posterior aspect of left knee Reports pain in left hamstring, posterior aspect of left knee and left calf. Historical: - Allergies: 23:00 NKA; dd2 - PMHx: 23:00 Hyperlipidemia; MGUS (Hyperlipidemia); dd2 - PSHx: 23:00 TRIGGER FINGER (Hyperlipidemia); dd2 - Immunization history:: Adult Immunizations up to date. - Infectious Disease History:: Denies. - Social history:: Smoking status: Patient reports the use of cigarette tobacco products, denies chronic smoking, but will smoke occasionally. Screenin:04 [facility] ED Fall Risk Assessment (Adult) History of falling in the last 3 months, dd2 including since admission No falls in past 3 months (0 pts) Confusion or Disorientation No (0 pts) Intoxicated or Sedated No (0 pts) Impaired Gait No (0 pts) Mobility Assist Device Used No (0 pt) Altered Elimination No (0 pt) Score/Fall Risk Level 0 - 2 = Low Risk Oriented to surroundings, Maintained a safe environment, Educated pt \T\ family on fall prevention, incl call for assistance when getting out of bed, Assessed \T\ reinforced patient's understanding of fall precautions, Hourly rounding (assess needs \T\ fall precautionary measures) done. Abuse screen: Denies threats or abuse. Denies injuries from another. Nutritional screening: No deficits noted. Tuberculosis screening: No symptoms or risk factors identified. Assessment: 23:04 Reassessment: SEE TRIAGE ASSESSMENT FOR FULL ASSESSMENT. dd2 10/27 00:00 Reassessment: Patient and/or family updated on plan of care and expected duration. Pain ha1 level reassessed. Patient is alert, oriented x 3, equal unlabored respirations, skin warm/dry/pink. 01:00 Reassessment: Patient and/or family updated on plan of care and expected duration. Pain ha1 level reassessed. Patient is alert, oriented x 3, equal unlabored respirations, skin warm/dry/pink. 02:05 Reassessment: Patient and/or family updated on plan of care and expected duration. Pain ha1 level reassessed. Patient is alert, oriented x 3, equal unlabored respirations, skin warm/dry/pink. PAIN 4/10 Patient states feeling better. Patient states symptoms have improved. Vital Signs: 10/26 22:56 BP 132 / 94; Pulse 91; Resp 16; Temp 98.3; Pulse Ox 99% ; Weight 68.95 kg; Height 5 ft. dd2 8 in. ; Pain 8/10; 10/27 02:00 BP 132 / 85; Pulse 86; Resp 17 S; Temp 98.2(O); Pulse Ox 99% on R/A; ha1 10/26 22:56 Body Mass Index 23.11 (68.95 kg, 172.72 cm) dd2 10/26 22:56 Pain Scale: Adult dd2 Ayana Coma Score: 10/26 23:04 Eye Response: spontaneous(4). Motor Response: obeys commands(6). Verbal Response: dd2 oriented(5). Total: 15. ED Course: 22:30 Patient arrived in ED. cj3 22:32 Ania Payne FNP-C is [facility]. kb 22:32 Joce Rothman MD is Attending Physician. kb 22:55 CINDA MOSES, LUCAS is Primary Nurse. dd2 23:00 Triage completed. dd2 23:00 Arm band placed on right wrist. dd2 23:04 Patient has correct armband on for positive identification. Bed in low position. Call dd2 light in reach. Side rails up X 1. Client placed on continuous cardiac and pulse oximetry monitoring. NIBP monitoring applied. Door closed. Noise minimized. Pillow given. Verbal reassurance given. 23:04 No provider procedures requiring assistance completed. Patient maintains SpO2 dd2 saturation greater than 95% on room air. 10/27 00:52 US Extremity Venous Unilateral Ltd In Process Unspecified. EDMS 02:09 Patient did not have IV access during this emergency room visit. ha1 Administered Medications: 00:00 Drug: HYDROcodone-acetaminophen PO 5 mg-325 mg 1 tabs PO once Route: PO; ha1 00:30 Follow up: Response: No adverse reaction; Pain is unchanged, physician notified ha1 01:40 Drug: Ketorolac IM 30 mg IM once Route: IM; Site: right ventrogluteal; ha1 02:00 Follow up: Response: No adverse reaction; Marked relief of symptoms ha1 Medication: 10/26 23:04 VIS not applicable for this client. dd2 Outcome: 10/27 01:26 Discharge ordered by . jon 02:05 Discharged to home via wheelchair, with family, ha1 02:05 Condition: stable 02:05 Discharge instructions given to patient, family, Instructed on discharge instructions, follow up and referral plans. medication usage, Demonstrated understanding of instructions, follow-up care, medications, Prescriptions given X 3, 02:09 Patient left the ED. ha1 Signatures: Dispatcher [employer] EDMA Ania Payne FNP-C FNP-Ckb Ayala, Heidy, RN RN ha1 CINDA MOSES RN RN dd2 Marta Willard cj3
--- NOTE | 2024-10-27 01:27 | EDPHYS ---
Physician Documentation [facility] Name: James Kumar Age: 64 yrs Sex: Male : 1960 Arrival Date: 10/26/2024 Time: 22:26 Bed 11 Private MD: ED Physician Joce Rothman HPI: 10/27 01:24 This 64 yrs old Male presents to ER via Ambulatory with complaints of Leg Pain kb - LT, Knee Pain - LT. 01:24 Patient is a 64-year-old male who presents for pain to posterior aspect of left knee kb and calf that started 2 weeks ago and was worse today. Denies injury or trauma. Denies bony tenderness. requesting PET scan. Historical: - Allergies: 10/26 23:00 NKA; dd2 - PMHx: 23:00 Hyperlipidemia; MGUS (Hyperlipidemia); dd2 - PSHx: 23:00 TRIGGER FINGER (Hyperlipidemia); dd2 - Immunization history:: Adult Immunizations up to date. - Infectious Disease History:: Denies. - Social history:: Smoking status: Patient reports the use of cigarette tobacco products, denies chronic smoking, but will smoke occasionally. ROS: 10/27 01:24 Constitutional: As per HPI kb Exam: 01:24 Constitutional: This is a well developed, well nourished patient who is awake, alert, kb and in no acute distress. Head/Face: Normocephalic, atraumatic. ENT: Moist Mucous membranes Cardiovascular: Regular rate Respiratory: Respirations even and unlabored. No increased work of breathing. Talking in full sentences Skin: Warm, dry with normal turgor. Normal color. Neuro: Awake and alert, GCS 15, oriented to person, place, time, and situation. 01:24 Musculoskeletal/extremity: Extremities: grossly normal except: noted in the posterior aspect of left knee and left calf: pain, tenderness, ROM: intact in all extremities, Circulation is intact in all extremities. Sensation intact. Weight bearing: able to fully bear weight, Vital Signs: 10/26 22:56 BP 132 / 94; Pulse 91; Resp 16; Temp 98.3; Pulse Ox 99% ; Weight 68.95 kg; Height 5 ft. dd2 8 in. ; Pain 8/10; 10/27 02:00 BP 132 / 85; Pulse 86; Resp 17 S; Temp 98.2(O); Pulse Ox 99% on R/A; ha1 10/26 22:56 Body Mass Index 23.11 (68.95 kg, 172.72 cm) dd2 10/26 22:56 Pain Scale: Adult dd2 Ayana Coma Score: 10/26 23:04 Eye Response: spontaneous(4). Motor Response: obeys commands(6). Verbal Response: dd2 oriented(5). Total: 15. MDM: 22:32 Medical Screening Exam initiated 10/27 01:25 Differential diagnosis: DVT, Ibarra's cyst, muscle strain. Data reviewed: vital signs, kb nurses notes. Test considered but Not performed: X-ray: X-ray considered but patient has no bony tenderness, injury. Historians other than the Patient: Spouse/Significant Other: . Counseling: I had a detailed discussion with the patient and/or guardian regarding the historical points, exam findings, and any diagnostic results supporting the discharge/admit diagnosis, radiology results, the need for outpatient follow up, a family practitioner, to return to the emergency department if symptoms worsen or persist or if there are any questions or concerns that arise at home. 10/26 22:47 Order name: US Extremity Venous Unilateral Ltd kb Administered Medications: 00:00 Drug: HYDROcodone-acetaminophen PO 5 mg-325 mg 1 tabs PO once Route: PO; ha1 00:30 Follow up: Response: No adverse reaction; Pain is unchanged, physician notified ha1 01:40 Drug: Ketorolac IM 30 mg IM once Route: IM; Site: right ventrogluteal; ha1 02:00 Follow up: Response: No adverse reaction; Marked relief of symptoms ha1 Disposition: 07:11 Co-signature as Attending Physician, Joce Rothman MD I agree with the assessment sp4 and plan of care. I reviewed the patient's care provided by the Advanced Practice Provider and agree with the diagnosis and treatment plan. Disposition Summary: 10/27/24 01:26 Discharge Ordered Notes: Location: Home Condition: Stable kb Diagnosis - Pain in left lower leg kb Followup: kb - With: Emergency Department - When: As needed - Reason: Worsening of condition Followup: kb - With: Private Physician - When: 2 - 3 days - Reason: Recheck today's complaints, Continuance of care, Re-evaluation by your physician Discharge Instructions: - Discharge Summary Sheet kb - Musculoskeletal Pain kb Forms: - Medication Reconciliation Form kb - Antibiotic Education kb - Prescription Opioid Use kb - Patient Portal Instructions kb - Leadership Thank You Letter kb - Work release form ha1 Prescriptions: - Diclofenac Sodium 75 mg Oral tablet, delayed release (enteric coated) - take 1 tablet ORAL route 2 times per day As needed; 30 tablet; Refills: 0, kb Product Selection Permitted - orphenadrine citrate 100 mg Oral Tablet Sustained Release - take 1 tablet ORAL route 2 times per day As needed; 20 tablet; Refills: 0, kb Product Selection Permitted Signatures: Dispatcher [employer] EDMS Ania Payne, [employer]-Saira Roy RN RN ha1 Joce Rothman MD MD sp4 CINDA MOSES RN RN dd2
[2024-10-27] MEDS ORDERED: KETOROLAC 30 MG/ML INJ ONE (01:41)
[2024-10-27 03:09] VITALS: BP 132/94; TEMP 98.3; O2SAT 99
--- NOTE | 2024-10-27 08:09 | RAD REPORT ---
EXAM: US Duplex Left Lower Extremity Veins CLINICAL HISTORY: The patient is 64 years old and is Male; PAIN TECHNIQUE: Real-time duplex ultrasound scan of the left lower extremity veins integrating B-mode two-dimension al vascular structure, Doppler spectral analysis, color flow Doppler imaging and compression. COMPARISON: No relevant prior studies available. FINDINGS: DEEP VEINS: Unremarkable. No DVT in the visualized common femoral, femoral, popliteal, posterio r tibial veins. The veins demonstrate normal color flow, are normally compressible, with normal phasic flow and/or augmentation response. SUPERFICIAL VEINS: Unremarkable. No thrombus in the visualized great saphenous vein. SOFT TISSUES: No acute findings. A 3.7 x 0.9 x 1.6 cm popliteal cyst is present. IMPRESSION: No DVT within the left lower extremity vessels. Electronically signed by: Anastasia Kinney MD 10/27/2024 01:38 AM CDT D ue to temporary technical issues with the PACS/[employer] reporting system, reports are being signed by the in-house radiologist without review as a courtesy to ensure prompt reporting the [facility] radiologist is fully responsible for the content of the report. Transcribed Date/Time: 10/27/2024 8:09 AM
== END 2024-10-27 02:09 | disposition home or self-care (01) ==
LOC: ER 22:26
DX: M79.662 Pain in left lower leg (principal); F17.210 Nicotine dependence, cigarettes, uncomplicated
CPT/HCPCS: 93971; 96372; 99284